=== PATIENT | female | born 1995 | race African-American/Black ===

== ENCOUNTER 2021-12-11 17:40 | Emergency (ER) | payer SELFPAY ==
[2021-12-11 17:53] VITALS: BP 126/78; PULSE 87; RESP 18; TEMP 98; BMI 29.8
[2021-12-11] MEDS ORDERED: diazePAM 5 MG TABLET PO ONE (19:14)
[2021-12-11] MEDS ORDERED: ACETAMINOPHEN 500 MG TABLET (FP) PO ONE (19:14)
[2021-12-11] MEDS ORDERED: LIDOCAINE 5% TOPICAL PATCH TP ONE (19:14)
[2021-12-11] MEDS ORDERED: KETOROLAC TROMETHAMINE 30 MG/1 ML VIAL IM ONE (19:14)
[2021-12-11] MEDS ORDERED: diazePAM 5 MG TABLET ONE (19:18)
[2021-12-11] MEDS ORDERED: KETOROLAC TROMETHAMINE 30 MG/1 ML VIAL ONE (19:18)
[2021-12-11] MEDS ORDERED: ACETAMINOPHEN 500 MG TABLET (FP) ONE (19:18)
[2021-12-11] MEDS ORDERED: LIDOCAINE 5% TOPICAL PATCH ONE (19:18)
[2021-12-11] MEDS ORDERED: LIDOCAINE PATCH REMOVAL MC SCH (22:00)
== END 2021-12-11 20:30 | disposition home or self-care (01) ==
LOC: JERFT 17:40 → JER 17:40 → JERFT 20:30
PROC: 3E0233Z Introduction of Anti-inflammatory into Muscle, Percutaneous Approach (ICD-10-PCS; principal; 2021-12-11)
DX: M54.50 Low back pain, unspecified (principal)
CPT/HCPCS: 99283-25